=== PATIENT | female | born 1970 | race Caucasian/White ===

== ENCOUNTER 2020-04-12 13:12 | Outpatient (REF) | payer OTHER, SELFPAY ==
[2020-04-12 13:53] LABS: MANUAL DIFF FLAG NO
[2020-04-12 14:03] LABS: Basophils Percent Auto 0.6 % (0-2); Eosinophils Absolute Auto 0.1 X10*3/uL (0.0-0.4); Eosinophils Percent Auto 1.9 % (0-4); Hematocrit 37.3 % (37-47); Hemoglobin 12.6 g/dl (12.0-16.0); Imm Gran Abs Auto 0.01 X10*3/uL (0.00-0.03); Imm Gran Pct Auto 0.2 % (0.0-0.4); Lymphocytes Absolute Auto 1.7 X10*3/uL (1.2-4.9); Lymphocytes Percent Auto 35.5 % (20-40); Mean Corpuscular HGB Conc 33.8 g/dl (31.0-35.0); Mean Corpuscular Hemoglobin 30.5 pg (27.0-33.0); Mean Corpuscular Volume 90.3 fL (80-98); Mean Platelet Volume 9.7 fL (9.4-12.3); Monocytes Absolute Auto 0.5 X10*3/uL (0.1-1.2); Neutrophils Absolute Auto 2.5 X10*3/uL (2.0-8.3); Neutrophils Percent Auto 50.8 % (45-73); Platelet Count 371 X10*3/uL (160-400); Red Blood Count 4.13 X10*6/uL (4.20-5.50); White Blood Count 4.8 X10*3/uL (4.8-10.8)
[2020-04-12 14:28] LABS: Alanine Aminotransferase 18 U/L (0-31); Albumin Level 4.3 g/dL (3.5-5.0); Alkaline Phosphatase 46 U/L (39-117); Anion Gap 11 (12-20); Aspartate Amino Transferase 24 U/L (5-31); Bilirubin Total 0.4 mg/dL (0.0-1.0); Blood Urea Nitrogen 11 mg/dL (9-16); Calcium 9.1 mg/dL (8.4-10.2); Carbon Dioxide 27 mmol/L (22-29); Chloride 99 mmol/L (96-108); Cholesterol 206 mg/dL; Estimated Glomerular Filt Rate > 60; Glucose Fasting 84 mg/dL (60-99); HDL Cholesterol 84 mg/dL; LDL Cholesterol Calculated 110 mg/dl; Potassium 4.8 mmol/l (3.3-5.1); Sodium 132 mmol/L (135-145); Total Protein 6.8 g/dL (6.5-8.0); Triglycerides 60 mg/dL
[2020-04-12 14:48] LABS: Thyroid Stimulating Hormone 1.42 mIU/mL (0.32-4.0); Vitamin D 25-OH Total 11.9 ng/mL (>30)
== END 2020-04-12 13:13 | disposition home or self-care (01) ==
LOC: HO.HMGCLDS 13:12
PROVIDERS: PCP Internal Medicine; Visit Provider Internal Medicine
DX: N39.46 Mixed incontinence (principal); Z76.89 Persons encountering health services in other specified circumstances; R10.13 Epigastric pain; M62.830 Muscle spasm of back; Z78.0 Asymptomatic menopausal state
CPT/HCPCS: 36415; 80053; 80061; 82306; 84443; 85025

== ENCOUNTER 2020-10-06 13:36 | Outpatient (REF) | payer OTHER, SELFPAY ==
[2020-10-06 16:55] LABS: Anion Gap 12 (12-20); Blood Urea Nitrogen 21 mg/dL (9-16); Carbon Dioxide 30 mmol/L (22-29); Chloride 101 mmol/L (96-108); Estimated Glomerular Filt Rate > 60; Sodium 138 mmol/L (135-145)
== END 2020-10-06 13:37 | disposition home or self-care (01) ==
LOC: HO.HMGCLDS 13:36
PROVIDERS: PCP Internal Medicine; Visit Provider Internal Medicine
DX: E87.1 Hypo-osmolality and hyponatremia (principal)
CPT/HCPCS: 36415; 80051; 82565; 84520

== ENCOUNTER → 2021-01-16 15:00 | Outpatient (BNVA) | payer OTHER, SELFPAY | PROVIDERS: PCP Internal Medicine | DX: N39.0 Urinary tract infection, site not specified (principal) | CPT/HCPCS: 99202 ==

== ENCOUNTER 2021-01-24 12:06 | Outpatient (REF) | payer OTHER, SELFPAY ==
--- NOTE | ~2021-01-24 | MM_ITS ---
EXAMINATION: MM SCREENING DIGITAL BREAST TOMOSYNTHESIS, BILATERAL CLINICAL INFORMATION: Screening. Asymptomatic. Prior ogm-[id number] mammography currently unavailable. No known family history breast cancer. The lifetime risk of breast cancer based on the Tyrer-Cuzick Model is 4%. COMPARISON: None. Radiology department staff will attempt to retrieve prior [id number] mammography to allow for comparison in an addendum report. TECHNIQUE: Digital breast tomosynthesis is performed in both the craniocaudal and mediolateral oblique views along with computer-aided detection (CAD). Synthesized 2D images are generated from the tomosynthesis. FINDINGS: There are scattered areas of fibroglandular density (ACR BI-RADS breast composition Category b). There are no significant masses, abnormal calcifications, or other abnormalities. The axilla and skin contours are unremarkable. MM/MM tomosynthesis screening BI IMPRESSION: No mammographic evidence of malignancy. ASSESSMENT: BI-RADS 1: Negative RECOMMENDATION: Routine annual mammography screening. This patient's information was entered into a reminder system with a target due date for their next mammogram.
== END 2021-01-24 12:07 | disposition home or self-care (01) ==
LOC: HO.MAMMO 12:06
PROVIDERS: PCP Internal Medicine; Visit Provider Internal Medicine
DX: Z12.31 Encounter for screening mammogram for malignant neoplasm of breast (principal)
CPT/HCPCS: 77063; 77067

== ENCOUNTER 2021-01-29 11:53 | Outpatient (REF) | payer OTHER, SELFPAY ==
[2021-01-29 13:33] LABS: Glucose Urine UA NEG (NEG); Leukocyte Esterase Urine NEG (NEG); Nitrite Urine NEG (NEG); PH 7.5 (5.0-8.0); Specific Gravity - Urine <= 1.005 (1.005-1.025); Urine Blood NEG (NEG); Urine Ketones NEG (NEG); Urine Protein NEG (NEG-TRACE)
[2021-01-29 13:40] LABS: Appearance Urine CLEAR; Color Urine STRAW
[2021-01-29 13:51] LABS: Bacteria Urine 1+ /LPF; RBC Urine 0 /HPF (0); Squamous Epithelial Cell Urine 1+ /LPF
== END 2021-01-29 11:54 | disposition home or self-care (01) ==
LOC: HO.LAB 11:53
PROVIDERS: PCP Internal Medicine
DX: N39.0 Urinary tract infection, site not specified (principal)
CPT/HCPCS: 81001; 87086

== ENCOUNTER → 2021-03-02 15:18 | Outpatient (BNVA) | payer OTHER, SELFPAY | PROVIDERS: PCP Internal Medicine | DX: N39.0 Urinary tract infection, site not specified (principal) | CPT/HCPCS: 99212 ==

== ENCOUNTER 2021-07-16 10:00 | Outpatient (REF) | payer OTHER, SELFPAY ==
[2021-07-16 11:48] LABS: Hematocrit 37.7 % (37.0-47.0); Hemoglobin 12.2 g/dl (12.0-16.0); Mean Corpuscular HGB Conc 32.4 g/dl (31.0-35.0); Mean Corpuscular Hemoglobin 30.1 pg (27.0-33.0); Mean Corpuscular Volume 93.1 fL (80.0-98.0); Platelet Count 368 X10*3/uL (160-400); Red Blood Count 4.05 X10*6/uL (4.20-5.50); Red Cell Distribution Width 13.2 % (11.0-16.0); White Blood Count 5.1 X10*3/uL (4.8-10.8)
[2021-07-16 12:26] LABS: Alanine Aminotransferase 25 U/L (0-31); Albumin Level 4.2 g/dL (3.5-5.0); Alkaline Phosphatase 47 U/L (39-117); Anion Gap 11 (12-20); Aspartate Amino Transferase 28 U/L (5-31); Bilirubin Total 0.3 mg/dL (0.0-1.0); Blood Urea Nitrogen 19 mg/dL (9-16); Calcium 9.7 mg/dL (8.4-10.2); Carbon Dioxide 28 mmol/L (22-29); Chloride 103 mmol/L (96-108); Estimated Glomerular Filt Rate > 60; Glucose Random 72 mg/dL (60-115); Potassium 5.1 mmol/L (3.3-5.1); Sodium 137 mmol/L (135-145)
== END 2021-07-16 10:01 | disposition home or self-care (01) ==
LOC: HO.LAB 10:00
PROVIDERS: PCP Internal Medicine; Referring Provider Internal Medicine; Visit Provider Nurse Practitioner Family
DX: Z01.818 Encounter for other preprocedural examination (principal); K62.5 Hemorrhage of anus and rectum; R14.0 Abdominal distension (gaseous)
CPT/HCPCS: 36415; 80053; 85027; 99202

== ENCOUNTER 2021-07-26 14:12 | Outpatient (REF) | payer OTHER, SELFPAY ==
--- NOTE | ~2021-07-26 | XR_ITS ---
EXAMINATION: XR SHOULDER, RIGHT CLINICAL INFORMATION: Pain COMPARISON: None TECHNIQUE: Three views of the right shoulder. FINDINGS: Visualized portion of the proximal right humerus demonstrate no fracture. Right humeral head demonstrates good articulation with the glenoid fossa. The right acromioclavicular joint is unremarkable. Visualized right-sided ribs and lung parenchyma are unremarkable. XR/XR shoulder RT min 2V IMPRESSION: Grossly unremarkable radiographs of the right shoulder.
== END 2021-07-26 14:13 | disposition home or self-care (01) ==
LOC: HO.HMGCX 14:12
PROVIDERS: PCP Internal Medicine; Visit Provider Physician Assistant Medical
DX: M25.511 Pain in right shoulder (principal)
CPT/HCPCS: 73030

== ENCOUNTER 2021-07-30 09:51 | Day surgery (SDC) | payer OTHER, SELFPAY ==
[2021-07-24 13:19] VITALS: BMI 23.8
--- NOTE | 2021-07-27 12:15 | P.CONAN_ITS ---
Documented by User: Mary Khan NP 07/27/21 12:16 HPI - Anesthesia Eval Consult details Narrative: 50yo F for Colonoscopy PMFSH Active Problems Active Problems: All Active Problems (Updated 07/24/21 @ 13:15 by Chasity Christensen, RN) Encounter for general adult medical examination with abnormal findings (Acute) Recurrent UTI (Acute) Breast screening (Acute) Rectal bleed (Acute) Stress and adjustment reaction (Acute) Hyponatremia (Acute) Vitamin D deficiency (Acute) Environmental allergies (Acute) Muscle spasm of back (Acute) Past Medical History Medical History (Updated 07/24/21 @ 13:15 by Chasity Christensen, RN) Environmental allergies Hyponatremia Muscle spasm of back PONV (postoperative nausea and vomiting) Vitamin D deficiency Surgical History Surgical History (Updated 07/24/21 @ 13:15 by Chasity Christensen, RN) History of foot surgery History of hysterectomy History of laparoscopy Hx of colonoscopy Social History Social History Household Members Other:: Housing: Other ([facility] ) Housing Other:: Base Housing Are you a primary healthcare architect to a significant other at home: No Do you presently have visiting nurse or other home services: No Alcohol intake: current Alcohol intake frequency: a few times a week Patient Tobacco Use Status: Former Tobacco user Quit Date: 4 yrs ago Tobacco use type: Cigarette Years Smoked: 32 years Use of substances other than those prescribed or required for medical reasons: No Are you DNR?: No Advance Directives: No Advance Directives Information Provided: No Advance Directives on File: No Recently lost weight without trying: No Nutrition Risks: No Nutritional Risk Patient : No FDLMP: Hyst : No Current occupational status: employed Meds Allergies Allergy/AdvReac Type Severity Reaction Status Date / Time penicillin G Allergy Unknown anaphylaxis Verified 07/30/21 10:06 Home Medications Medication Instructions Recorded Confirmed Last Taken Type estradiol 1 mg 1 tab PO DAILY 07/24/21 07/26/21 Unknown History tablet Exam Exam Date and Time: July 27, 2021 1215 Height,Weight and Vital Signs: Height 5 ft 2 in Weight 58.967 kg Pertinent Lab Results Pertinent Lab Results: Laboratory Tests 07/16/21 07/16/21 11:08 11:08 WBC 5.1 Hgb 12.2 Hct 37.7 Plt Count 368 Sodium 137 Potassium 5.1 Chloride 103 Carbon Dioxide 28 BUN 19 H Creatinine 0.79 Assessment and Plan Assessment Anesthesia Assessment: Chart Reviewed Documented by User: Alena Decker MD 07/30/21 10:24 [facility] Past Medical History Medical History (Updated 07/24/21 @ 13:15 by Chasity Christensen RN) Environmental allergies Hyponatremia Muscle spasm of back PONV (postoperative nausea and vomiting) Vitamin D deficiency Family History Family history of problems with anesthesia: No Surgical History Surgical History (Updated 07/24/21 @ 13:15 by Chasity Christensen RN) History of foot surgery History of hysterectomy History of laparoscopy Hx of colonoscopy History of Problems with Anesthesia: No Social History Social History Household Members Other:: Housing: Other ([facility] home ) Housing Other:: Base Housing Are you a primary healthcare architect to a significant other at home: No Do you presently have visiting nurse or other home services: No Alcohol intake: current Alcohol intake frequency: a few times a week Patient Tobacco Use Status: Former Tobacco user Quit Date: 4 yrs ago Tobacco use type: Cigarette Years Smoked: 32 years Use of substances other than those prescribed or required for medical reasons: No Are you DNR?: No Advance Directives: No Advance Directives Information Provided: No Advance Directives on File: No Recently lost weight without trying: No Nutrition Risks: No Nutritional Risk Patient : No FDLMP: Hyst : No Current occupational status: employed Meds Allergies Allergy/AdvReac Type Severity Reaction Status Date / Time penicillin G Allergy Unknown anaphylaxis Verified 07/30/21 10:06 Home Medications Medication Instructions Recorded Confirmed Last Taken Type estradiol 1 mg 1 tab PO DAILY 07/24/21 07/26/21 Unknown History tablet Exam Airway Mallampati Class: II (Caps lateral) TM Dist: >3cm Neck ROM: Full Heart: rrr Lungs: cta Assessment and Plan Assessment Anesthesia Assessment: Anesthesia Plan Discussed and Chart Reviewed Final Anesthetic Review Family History of Problems with Anesthesia: No History of Problems with Anesthesia: No NPO: Yes ASA Class: II Final Preanesthetic Review: No Changes in Pt Med Stat, Meds/Allgs Chart Reviewed and Consent Obtained/Reviewed Patient Risk: Intermediate Procedure Risk: Intermediate Anesthetic Plan Anesthetic Plan: MAC: Disposition: Standard PACU
[2021-07-30 10:08] VITALS: BP 129/84; PULSE 71; RESP 16; TEMP 36.6; O2SAT 100
--- NOTE | 2021-07-30 10:23 | MHC.SHP ---
Pre-Procedural Eval Section A Date of Service: 07/30/21 Section B Chief Complaint: rectal bleeding Relevant Family History (Specify if Yes): No Relevant Social History: None (ex smoker) Present Medications: see Short Stay Collaborative assessment Medical History: Significant History (Environmental allergies Hyponatremia Muscle spasm of back PONV (postoperative nausea and vomiting) Vitamin D deficiency) History of Previous Operations: Relevant previous surgery/procedure and date(s) (History of foot surgery History of hysterectomy History of laparoscopy Hx of colonoscopy) Allergies: Allergies Allergy/AdvReac Type Severity Reaction Status Date / Time penicillin G Allergy Unknown anaphylaxis Verified 07/30/21 10:06 Review of Systems Sugical H&P ROS: Negative: Constitution, Cardiovascular, Respiratory, Neurological, Psychiatric, Hem-Onc, Allergic/Immunologic, Gastrointestinal, Genitourinary, Musculoskeletal, Integumentary, Endocrine and Eyes/Ears/Nose/Throat Exam Surgical H&P Exam: Normal: HEENT, Normal: Heart, Normal: Lungs, Normal: Extremities, Normal: Abdomen, Normal: Skin and Normal: Neurological Plan Diagnosis/Plan: Unchanged I have reviewed the history and physical and performed a pertinent physical examination on my patient. No changes have occurred unless specified.
[2021-07-30] MEDS: Lactated Ringers 1,000 ML 100 ML IVCONT (10:36)
--- NOTE | 2021-07-30 11:06 | P.OP_ITS ---
Operative Note Operative Note Date of Service: 07/30/21 Narrative: Operative Information Procedure Description: Colonoscopy COLONOSCOPY Instrument: Olympus variable stiffness pediatric scope 190L Colonoscopy Monitoring: Vital signs and clinical assessment, continuous EKG monitoring, Pulse oximetry, Carbon Dioxide monitoring and blood pressure monitoring were done throughout the procedure. Colon withdrawal time was 14 minutes. Procedure: The patient was placed in the left lateral decubitis position and pre-procedure medications were administered. After a digital rectal examination of the ano-rectum, the video colonoscope was inserted into the rectum and advanced through the colon to the cecum/TI. The colonoscope was slowly withdrawn in a retrograde panoramic fashion and the colon mucosa was carefully examined including a retroflexed view of the rectum. Findings and interventions are described below. Procedure Difficulty:moderate due to looping and tortuous colon Findings: Terminal Ileum-normal Cecum:normal Ascending Colon: normal Transverse Colon -normal Descending Colon:normal Sigmoid Colon: 7-9 mm sessile polyp removed with cold snare Rectum: Retroflexion with moderate sized inflammed internal hemorrhoids, grade II Anorectum - internal hemorrhoids seen at anal verge Colon preparation: [place] Bowel Preparation Scale Right colon; 1 Transverse colon: 2 Left colon; 2 (borderline 2, some areas with opaque liquid stool hard to suction) (0 = Unprepared colon segment with mucosa not seen due to solid stool that cannot be cleared. 1 = Portion of mucosa of the colon segment seen, but other areas of the colon segment not well seen due to staining, residual stool and/or opaque liquid. 2 = Minor amount of residual staining, small fragments of stool and/or opaque liquid, but mucosa of colon segment seen well. 3 = Entire mucosa of colon segment seen well with no residual staining, small fragments of stool or opaque liquid) Impression and Post Procedure Diagnosis: polyp internal hemorrhoids Plan: High fiber diet leaflet Avoid straining at stool, epsom salts and sitz bath, anusol supps or cream Repeat Colonoscopy in 5 years due to prep or earlier if clinically indicated, next time maybe 2 d of clear liquids Above findings were reviewed with the patient and relevant handouts were provided if indicated.
--- NOTE | 2021-07-30 11:06 | PM.OP ---
Brief Operative Note Date of Service: 07/30/21 Pre-op diagnosis: rectal bleeding Post-op diagnosis: same Procedure: see op note Surgeon: Aleksandar Nettles MD Anesthesia: MAC Was an Women'S Basketball Coach used for this Procedure?: No Estimated blood loss (mL): 0 Condition: stable Disposition: PACU
[2021-07-30 12:06] VITALS: BP 114/73; PULSE 82; RESP 16; TEMP 36.3; O2SAT 97
[2021-07-30 12:21] VITALS: BP 131/87; PULSE 61; RESP 16; TEMP 36.3; O2SAT 98
== END 2021-07-30 13:01 | disposition home or self-care (01) ==
PROVIDERS: PCP Internal Medicine; Visit Provider Internal Medicine Gastroenterology
PROC: 0DJD8ZZ Inspection of Lower Intestinal Tract, Via Natural or Artificial Opening Endoscopic (ICD-10-PCS; CPT 45378; principal; 2021-07-30 11:10)
DX: K62.5 Hemorrhage of anus and rectum (principal); D12.5 Benign neoplasm of sigmoid colon; R19.4 Change in bowel habit; K63.89 Other specified diseases of intestine; K64.1 Second degree hemorrhoids; E87.1 Hypo-osmolality and hyponatremia; E55.9 Vitamin D deficiency, unspecified; Z87.891 Personal history of nicotine dependence
CPT/HCPCS: 45385; 88305